=== PATIENT | female | born 1980 | race African-American/Black ===

== ENCOUNTER 2017-04-25 16:19 | Emergency (ER) | payer MEDICAID ==
[~2017-04-25] VITALS: Ht 157.5 cm; Wt 66.0 kg
[2017-04-25] MEDS: HYDROCODONE/ACETAMINOPHEN 5/325MG TABLET PO ONE (17:30)
[2017-04-25 18:19] VITALS: BP 117/75
== END 2017-04-25 18:24 | disposition home or self-care (01) ==
LOC: ER 17:04
DX: S53.491A Other sprain of right elbow, initial encounter (principal); S50.01XA Contusion of right elbow, initial encounter; Y04.2XXA Assault by strike against or bumped into by another person, initial encounter; Y93.89 Activity, other specified; Y92.89 Other specified places as the place of occurrence of the external cause; Y99.8 Other external cause status
CPT/HCPCS: 73030; 73060; 73070; 81025; 99284

== ENCOUNTER 2017-09-05 21:11 | Emergency (ER) | payer MEDICAID ==
[~2017-09-05] VITALS: Ht 157.5 cm; Wt 73.0 kg
[2017-09-06] MEDS ORDERED: ACETAMINOPHEN WITH CODEINE 300/30MG TABLET PO ONE (00:15)
[2017-09-06 02:04] VITALS: BP 118/80
== END 2017-09-06 02:08 | disposition home or self-care (01) ==
LOC: ER 21:11
DX: M79.1 Myalgia (principal); V03.00XA Pedestrian on foot injured in collision with car, pick-up truck or van in nontraffic accident, initial encounter; Y93.89 Activity, other specified; Y92.481 Parking lot as the place of occurrence of the external cause
CPT/HCPCS: 73060; 73610; 81025; 99284; Z7610

== ENCOUNTER 2021-07-07 10:48 | Emergency (ER) | payer MEDICAID ==
[~2021-07-07] VITALS: Ht 162.6 cm; Wt 68.0 kg
[2021-07-07 12:13] LABS: BASOPHILS % 1.1 % (0.0-2.0); EOSINOPHILS % 1.5 % (0.0-5.0); HEMATOCRIT. 37.4 % (36.0-48.0); HEMOGLOBIN. 12.8 g/dL (12.0-16.0); LYMPHOCYTES % 44.3 % (20.0-50.0); MEAN CORPUSCULAR HEMOGLOBIN 31.9 pg (28.0-32.0); MEAN CORPUSCULAR VOLUME 93.5 fL (81.0-99.0); MEAN PLATELET VOLUME 7.4 fl (7.4-10.4); MONOCYTES % 7.4 % (2.0-8.0); NEUTROPHILS % 45.7 % (40.0-76.0); PLATELET 373 x1000/uL (130-400); RED CELL DISTRIBUTION WIDTH 12.3 % (11.6-14.6)
[2021-07-07 12:22] LABS: CHLORIDE 110 mEq/L (98-107)
[2021-07-07 12:33] LABS: B-HCG QUANTITATIVE < 1 mIU/mL (<3)
[2021-07-07 13:33] LABS: KETONES URINE NEGATIVE (NEGATIVE); LEUKOCYTE ESTERASE URINE NEGATIVE (NEGATIVE); NITRITE URINE NEGATIVE (NEGATIVE); OCCULT BLOOD URINE 2+ (NEGATIVE); PH URINE 7.5 (4.5-8.0); PROTEIN URINE 2+ (NEGATIVE); SPECIFIC GRAVITY URINE 1.021 (1.005-1.030)
[2021-07-07 13:40] LABS: CLARITY URINE CLOUDY (CLEAR); COLOR URINE BLOODY (YELLOW)
[2021-07-07 14:26] VITALS: BP 128/89
== END 2021-07-07 14:28 | disposition home or self-care (01) ==
LOC: ER 10:48
DX: N93.9 Abnormal uterine and vaginal bleeding, unspecified (principal); D25.9 Leiomyoma of uterus, unspecified
CPT/HCPCS: 36415; 76830; 76856; 80053; 81003; 81025; 84702; 85025; 86850; 86900; 99284

== ENCOUNTER 2024-05-08 13:08 | Emergency (ER) | payer MEDICAID, OTHER ==
[~2024-05-08] VITALS: Ht 157.5 cm; Wt 72.7 kg
[2024-05-08 13:27] VITALS: BP 145/76; PULSE 80; RESP 18; TEMP 36.7; O2SAT 97
[2024-05-08] MEDS: ACETAMINOPHEN 325MG TABLET PO ONE (14:30)
[2024-05-08] MEDS ORDERED: ACET-2708 MT (15:13)
== END 2024-05-08 15:30 | disposition home or self-care (01) ==
LOC: ER 13:08
DX: S80.01XA Contusion of right knee, initial encounter (principal); W01.0XXA Fall on same level from slipping, tripping and stumbling without subsequent striking against object, initial encounter; Y93.89 Activity, other specified; Y92.89 Other specified places as the place of occurrence of the external cause; Y99.8 Other external cause status
CPT/HCPCS: 73560; 99283